=== PATIENT | female | born 1950 | race Caucasian/White ===

== ENCOUNTER → 2018-03-22 | Outpatient (CLI) | payer OTHER ==
[~2018-03-22] MED LIST: AGM875T PO; ATOR40TA; CARV6.25; CCLB10TRX; CHANTIX; CLCX200C; CLPD75T; CTLP20T; ESTRATEST; ESTRATEST PO; EZET1TAB27 PO; FLUC200T45 PO; HCT25T; HYDR-3583 PO; MECL-124 PO; NF-ESOM40C; NTR.4SL; PHENTERAMINE; PROMETRIUM; SPRN25T; TRIAMTERENE/HCTZ; ULTRACET; UREA CREAM; VANIQA 13.9%
--- NOTE | 2018-03-22 08:25 | Diagnostic Imaging Report ---
INDICATION: Abdominal pain TECHNIQUE: Multiple real-time conroy scale sonographic images of the abdomen. CORRELATION STUDY: None FINDINGS: LIVER: Normal echotexture within the visualized portions of the liver. Liver length 18 cm. GALLBLADDER: Approximately 1 cm mobile gallstone is present. No abnormal gallbladder wall thickening or pericholecystic fluid. COMMON BILE DUCT: Nondilated at 2 mm. PANCREAS: Partially obscured. Visualized portions appearing unremarkable. SPLEEN: Unremarkable. ABDOMINAL AORTA: Unremarkable. INFERIOR VENA CAVA: Limited in visualization. RIGHT KIDNEY: 11.2 cm. Unremarkable. LEFT KIDNEY: 11.1 cm. Unremarkable. OTHER: None. IMPRESSION: 1. Mobile 1 cm gallstone. Otherwise unremarkable abdominal ultrasound evaluation. Dictated by: Dictated on workstation # [id number]
== END ==
LOC: RAD 06:42
PROVIDERS: ATTEND Nurse Practitioner Family
DX: K80.20 Calculus of gallbladder without cholecystitis without obstruction (principal); R16.0 Hepatomegaly, not elsewhere classified
CPT/HCPCS: 76700

== ENCOUNTER 2018-10-21 19:54 | Outpatient (CLI) | payer MEDICARE, OTHER | END 2018-10-22 06:25 | disposition home or self-care (01) | LOC: SLEEP 19:54 | PROVIDERS: ATTEND Nurse Practitioner Family | DX: G47.33 Obstructive sleep apnea (adult) (pediatric) (principal); G47.31 Primary central sleep apnea | CPT/HCPCS: 95811 ==

== ENCOUNTER → 2019-05-25 | Outpatient (CLI) | payer OTHER ==
--- NOTE | 2019-05-25 11:56 | Diagnostic Imaging Report ---
PROCEDURE: CT pelvis without contrast. TECHNIQUE: Multiple contiguous axial images were obtained through the pelvis without the use of intravenous contrast. Sagittal and coronal reformations were performed. Auto Exposure Controls were utilized during the CT exam to meet ALARA standards for radiation dose reduction. INDICATION: Bilateral hip pain. Lumbosacral pain. COMPARISON: None. FINDINGS: No acute fracture is seen in the pelvis. Alignment appears normal. The femoral heads are well seated in the acetabula bilaterally. There are moderate degenerative changes in the pubic symphysis. Moderate degenerative changes are seen in the right hip, and mild in the left hip. There is marked facet arthropathy in the lower lumbar spine. No aggressive osseous lesions are seen. The soft tissues about the pelvis demonstrate no focal muscular atrophy or drainable fluid collections. No free fluid is seen. No masses or lymphadenopathy are seen. IMPRESSION: 1. No acute fracture is seen in the pelvis. 2. Degenerative changes in the hips, right greater than left, and the lower lumbar spine. Dictated by: Dictated on workstation # [id number]
--- NOTE | 2019-05-25 13:07 | Diagnostic Imaging Report ---
PROCEDURE: CT lumbar spine without contrast. TECHNIQUE: Multiple contiguous axial images were obtained through the lumbar spine without the use of intravenous contrast. Sagittal and coronal reformations were then performed. Auto Exposure Controls were utilized during the CT exam to meet ALARA standards for radiation dose reduction. INDICATION: Low back pain radiating down both legs. No known injury. COMPARISON: None. FINDINGS: The last well formed disc space we labeled L5-S1 for purposes of this examination. The vertebral body heights are preserved. There is minimal disc height loss at multiple levels in the lumbar spine. There are small endplate osteophytes seen at multiple levels. There is marked facet arthropathy at L4-5 and L5-S1. No acute fracture is seen. There is calcific atherosclerosis. Nonobstructing calculi are seen in the kidneys bilaterally. There is a stone seen in the gallbladder. There is mild spinal canal narrowing at L4-5, L3-4, and L2-3 with mild bilateral foraminal narrowing at those levels as well. No aggressive osseous lesions are seen. IMPRESSION: 1. Marked facet arthropathy in the lower lumbar spine with otherwise mild degenerative changes. No acute osseous abnormality is seen. 2. Nephrolithiasis and cholelithiasis. Dictated by: Dictated on workstation # [id number]
== END ==
LOC: RAD 10:59
PROVIDERS: ATTEND Nurse Practitioner Family
DX: M46.86 Other specified inflammatory spondylopathies, lumbar region (principal); M47.816 Spondylosis without myelopathy or radiculopathy, lumbar region; N20.0 Calculus of kidney; K80.20 Calculus of gallbladder without cholecystitis without obstruction; M16.0 Bilateral primary osteoarthritis of hip
CPT/HCPCS: 72131; 72192

== ENCOUNTER → 2019-06-10 | Outpatient (CLI) | payer OTHER | LOC: CARD 09:52 | PROVIDERS: ATTEND Nurse Practitioner Family | DX: I51.7 Cardiomegaly (principal); I34.0 Nonrheumatic mitral (valve) insufficiency; I35.8 Other nonrheumatic aortic valve disorders | CPT/HCPCS: 93306 ==

== ENCOUNTER → 2021-09-30 | Outpatient (CLI) | payer OTHER ==
--- NOTE | 2021-09-30 12:18 | Diagnostic Imaging Report ---
PROCEDURE: Pelvic comp/transvaginal sonogram. TECHNIQUE: Complete transabdominal and transvaginal pelvic ultrasound was performed. In addition, limited pelvic Doppler was performed. INDICATION: Pelvic pain. FINDINGS: Uterus measures 8.6 x 4.4 x 5.0 cm. There appears to be approximately 2.1 cm fibroid in the mid anterior uterus. There are cervical nabothian cysts present. Endometrium is slightly thickened at 7 mm. Right ovary measures 3.3 x 2.4 x 3.0 cm. Right ovary does contain a 2.3 x 2.0 cm cyst. There is blood flow to the right ovary. The left ovary is surgically absent. There is no free fluid. IMPRESSION: 1. Uterine fibroid. 2. 2.3 cm right ovarian cyst. In addition, endometrium is slightly thickened for patient's age. No other significant abnormality is seen. Dictated by: Dictated on workstation # [id number]
--- NOTE | 2021-09-30 12:30 | Diagnostic Imaging Report ---
INDICATION: Routine screening. COMPARISON: 08/30/2014 and 08/16/2013. TECHNIQUE: 2D and 3D bilateral screening mammography was performed with CAD. FINDINGS: Both breasts are heterogeneously dense, limiting the sensitivity of mammography. There is a circumscribed nodule in the central right breast slightly lateral to the nipple line on the CC view. Additional views are recommended. The left breast is unremarkable. No malignant-appearing microcalcifications are seen. The axillae are unremarkable. IMPRESSION: Right breast density. Additional views are recommended for further evaluation. If this persists, ultrasound will be necessary as well. ACR BI-RADS Category 0: Incomplete. (Needs additional imaging evaluation). Result letter will be mailed to the patient. Note: At least 10% of breast cancer is not imaged by mammography. Dictated by: Dictated on workstation # [id number]
--- NOTE | 2021-09-30 12:47 | Diagnostic Imaging Report ---
INDICATION: RENAL STONE,GALLSTONES TECHNIQUE: Multiple real-time conroy scale sonographic images of the abdomen. CORRELATION STUDY: 03/22/2018 FINDINGS: LIVER: Slight increased echotexture within the visualized portions of the liver. Question more focal area of fatty sparing near the marilu hepatis. There is normal, hepatopedal direction of flow within the main portal vein. Liver length at 14.8 cm. GALLBLADDER: Echogenic, shadowing gallstones are present. No abnormal gallbladder wall thickening. COMMON BILE DUCT: Nondilated at 0.5 cm. PANCREAS: Limited in visualization. The visualized portions appearing unremarkable. SPLEEN: Unremarkable at 8.3 x 3.2 x 3.6 cm. Probable approximately 2.5 cm accessory spleen also present. ABDOMINAL AORTA: Unremarkable. INFERIOR VENA CAVA: Limited in visualization. RIGHT KIDNEY: 11.1 x 5.8 x 5.0 cm. Unremarkable. LEFT KIDNEY: 10.1 x 4.8 x 4.0 cm. Unremarkable. OTHER: None. IMPRESSION: 1. Likely mild hepatic steatosis. 2. Cholelithiasis. No significant gallbladder wall thickening or bile duct dilatation. Dictated by: Dictated on workstation # [id number]
== END ==
LOC: RAD 09:45
PROVIDERS: ATTEND Nurse Practitioner Family
DX: Z12.31 Encounter for screening mammogram for malignant neoplasm of breast (principal); D25.9 Leiomyoma of uterus, unspecified; N83.201 Unspecified ovarian cyst, right side; K80.20 Calculus of gallbladder without cholecystitis without obstruction; N20.0 Calculus of kidney
CPT/HCPCS: 76700; 76830; 76856; 77063; 77067

== ENCOUNTER → 2021-10-04 | Outpatient (CLI) | payer OTHER ==
--- NOTE | 2021-10-04 15:52 | Diagnostic Imaging Report ---
INDICATION: Right breast density. Patient presents for additional views. Correlation is made with screening study from 09/30/2021. Unilateral right 2-D and 3-D diagnostic mammography was performed. This includes spot compression CC and ML views as well as conventional 90 degree lateral views. Additional views fail to demonstrate a discrete mass. There appears to be normal dispersion of fibroglandular elements. No suspicious microcalcifications are seen. IMPRESSION: Additional views fail to demonstrate a discrete mass. The patient may return to routine annual screening mammography. BI-RADS Category 1 ACR BI-RADS Category 1: Negative. Result letter will be mailed to the patient. Note: At least 10% of breast cancer is not imaged by mammography. Dictated by: Dictated on workstation # [id number]
== END ==
LOC: RAD 13:45
PROVIDERS: ATTEND Nurse Practitioner Family
DX: R92.2 Inconclusive mammogram (principal)
CPT/HCPCS: 77065; G0279

== ENCOUNTER → 2021-10-16 | Outpatient (CLI) | payer OTHER | LOC: CARD 14:30 | PROVIDERS: ATTEND Internal Medicine Cardiovascular Disease | DX: I08.0 Rheumatic disorders of both mitral and aortic valves (principal) | CPT/HCPCS: 93306 ==

== ENCOUNTER 2021-11-18 05:27 | Outpatient (RCR) | payer OTHER, MEDICARE ==
--- NOTE | 2021-11-13 11:17 | Diagnostic Imaging Report ---
Indication: Preop for total knee replacement 2 views of the chest shows normal heart size and vascularity. There is some flattening of diaphragms consistent with COPD. There is a well-circumscribed nodular density in the right midlung which is probably but not definitely a nipple shadow. Follow-up images with nipple markers would be helpful. No other mass or infiltrate is seen. There is no acute bony abnormality. IMPRESSION: Probable nipple shadow. COPD. There is slightly more basilar hyperexpansion compared to a prior chest x-ray from 08/05/2011. Dictated by: Dictated on workstation # [id number]
[2021-11-13 11:20] LABS: BASOPHILS # (AUTO) 0.1 10^3/uL (0.0-0.1); BASOPHILS % (AUTO) 1 % (0-10); EOSINOPHILS # (AUTO) 0.2 10^3/uL (0.0-0.3); EOSINOPHILS % (AUTO) 2 % (0-10); HEMATOCRIT 44 % (35-52); HEMOGLOBIN 14.2 g/dL (11.5-16.0); LYMPHOCYTES # (AUTO) 1.5 10^3/uL (1.0-4.0); LYMPHOCYTES % (AUTO) 21 % (12-44); MEAN CORPUSCULAR HEMOGLOBIN 30 pg (25-34); MEAN CORPUSCULAR HGB CONC 33 g/dL (32-36); MEAN CORPUSCULAR VOLUME 90 fL (80-99); MEAN PLATELET VOLUME 9.4 fL (9.0-12.2); MONOCYTES # (AUTO) 0.5 10^3/uL (0.0-1.0); MONOCYTES % (AUTO) 6 % (0-12); NEUTROPHILS % (AUTO) 69 % (42-75); PLATELET COUNT 358 10^3/uL (130-400); WHITE BLOOD COUNT 7.2 10^3/uL (4.3-11.0)
[2021-11-13 11:21] LABS: BILIRUBIN,URINE NEGATIVE (NEGATIVE); CLARITY,URINE CLEAR; COLOR,URINE YELLOW; GLUCOSE, URINE (UA) NEGATIVE (NEGATIVE); KETONES,URINE NEGATIVE (NEGATIVE); LEUKOCYTE ESTERASE ,URINE NEGATIVE (NEGATIVE); NITRITE,URINE NEGATIVE (NEGATIVE); PH,URINE 6.5 (5-9); PROTEIN,URINE NEGATIVE (NEGATIVE)
[2021-11-13 11:30] LABS: BACTERIA,URINE NEGATIVE /HPF; SQUAMOUS EPITHELIAL CELL,UR 0-2 /HPF
[2021-11-13 11:35] LABS: ERYTHROCYTE SEDIMENTATION RATE 17 MM/HR (0-30)
[2021-11-13 11:45] LABS: ALBUMIN 4.5 GM/DL (3.2-4.5); BILIRUBIN,TOTAL 0.3 MG/DL (0.1-1.0); CALCIUM 9.8 MG/DL (8.5-10.1); CREATININE SERUM 1.1 MG/DL (0.60-1.30); POTASSIUM 3.9 MMOL/L (3.6-5.0); TOTAL PROTEIN 8.2 GM/DL (6.4-8.2)
[2021-11-13 12:14] VITALS: BP 135/67
[~2021-11-18] VITALS: Ht 164 cm; Wt 70.0 kg
[~2021-11-18 05:27] MED LIST changes: +ASPI-999 PO; +ESCI20TA39 PO; +ESTR0.5T3 PO; +EZET-57 PO; +HYDR25TA4 PO; +MULT-1021 PO; +PROG100C11 PO; +TPR25T PO
== END 2021-11-18 10:15 | disposition home or self-care (01) ==
LOC: PREOP 05:27
PROVIDERS: ATTEND Orthopaedic Surgery
DX: Z01.818 Encounter for other preprocedural examination (principal); M17.12 Unilateral primary osteoarthritis, left knee; J44.9 Chronic obstructive pulmonary disease, unspecified; Z11.2 Encounter for screening for other bacterial diseases; Z20.822 Contact with and (suspected) exposure to COVID-19
CPT/HCPCS: 36415; 71046; 80053; 81000; 85025; 85652; 86850; 86900; 86901; 87081; 87635

== ENCOUNTER 2021-11-20 06:00 | Inpatient (IN) | payer OTHER, MEDICARE ==
--- NOTE | 2021-11-13 19:22 | HISTORY AND PHYSICAL ---
DATE OF SERVICE: 11/20/2021 ADMISSION HISTORY AND PHYSICAL This will be for inpatient admission on 11/20/2021. Date of admission for left total knee arthroplasty will be 11/20/2021. Date of admission/date of service/date of surgery will be 11/20/2021. The patient will require regular inpatient admission for pain management, need for physical therapy as well as comorbidities. HISTORY OF PRESENT ILLNESS: The patient is a 71-year-old female with progressively worsening left knee pain. She has undergone treatment with injections, anti-inflammatories and rest without relief. Due to functional impairment and failure to improve with conservative measures, the patient elected to proceed with surgical intervention. Radiographs reveal severe medial and patellofemoral arthrosis. REVIEW OF SYSTEMS: No chest pain, no shortness of breath, no dysuria. PAST MEDICAL HISTORY: Stage 2 kidney disease, depression, endometriosis, right coronary artery stent, hypertension, gout, sleep apnea. PAST SURGICAL HISTORY: Laparoscopy, tubal ligation, total knee arthroplasty, tonsillectomy, ovarian cyst excision, coronary stent placement, right carpal tunnel, and appendectomy. FAMILY HISTORY: Ischemic heart disease, breast cancer, autoimmune disease. PRIMARY CARE PROVIDER: Dr. Olmstead. MEDICATIONS: Vytorin, hydrochlorothiazide, aspirin, estrogen, spironolactone, progesterone, escitalopram, ezetimibe. ALLERGIES: SULFA. SOCIAL HISTORY: The patient is a former smoker with a [id number] history. She drinks alcohol occasionally. PHYSICAL EXAMINATION: GENERAL: The patient is well-developed, well-nourished, in no acute distress. HEENT: Normocephalic, atraumatic. Pupils are equal, round and reactive to light. Oropharynx is clear. NECK: Supple with no lymphadenopathy. LUNGS: Clear to auscultation bilaterally. HEART: Regular rate and rhythm. ABDOMEN: Soft, nontender, nondistended. EXTREMITIES: The left knee demonstrates varus alignment. She has a slight effusion. There is no erythema or warmth. She ambulates with an antalgic gait. She is tender along her medial joint line. She has pain medially with Jill's. Range of motion 0/3/115. There is no varus valgus laxity. Negative anterior and posterior drawer. IMPRESSION: Left knee severe osteoarthritis, unresponsive to conservative measures. PLAN: Left total knee arthroplasty. The risks, benefits, options, ramifications and recovery have been discussed at length with the patient. She understands and wishes to proceed. Job ID: [id number] DocumentID: [id number] Dictated Date: 10/31/2021 14:55:15 Chief Pilot Date: 10/31/2021 15:29:00 Dictated By: BHARATH DOAN MD
[~2021-11-20] VITALS: Ht 162.6 cm; Wt 70.0 kg
[2021-11-20] VITALS (15 sets, daily range): BP systolic 104–165; BP diastolic 47–75
[2021-11-20] MEDS ORDERED: CEFUROXIME INJECTION 1,500 MG in NS (IVPB) 50 ML IV ONE (06:15)
[2021-11-20] MEDS ORDERED: CEFUROXIME 1.5 GM/15 ML (ZINACEF) VIAL ONE (06:20)
[2021-11-20] MEDS: LACTATED RINGERS 1,000 ML IV PRN ×2 (06:40→07:43)
[2021-11-20] MEDS ORDERED: ROPIVACAINE 5MG/ML 30ML VIAL ONE (06:53)
[2021-11-20] MEDS ORDERED: MIDAZOLAM 2 MG/2 ML (VERSED) VIAL ONE (06:53)
[2021-11-20] MEDS ORDERED: fentaNYL INJ 100 MCG/2 ML AMP ONE (06:58)
[2021-11-20] MEDS ORDERED: NALOXONE 0.4 MG/ML 1 ML (NARCAN) VIAL IV PRN (07:30)
[2021-11-20] MEDS ORDERED: diphenhydrAMINE 50 MG/ML INJ (BENADRYL) IVP PRN (07:30)
[2021-11-20] MEDS ORDERED: morphine PCA 100 MG/100 ML BAG IV PRN (07:30)
[2021-11-20] MEDS ORDERED: ONDANSETRON 4 MG/2 ML (SDV) Z0FRAN IVP PRN ×2 (07:30→09:30)
[2021-11-20 07:32] LABS: PROTHROMBIN TIME PATIENT 13.1 SEC (12.2-14.7)
--- NOTE | 2021-11-20 07:33 | Progress Note-Pre Operative ---
Pre-Operative Progress Note H&P Reviewed The H&P was reviewed, patient examined and no changes noted. Date Seen by Provider: Nov 20, 2021 Time Seen by Provider: 07:22 Date H&P Reviewed: Nov 20, 2021 Time H&P Reviewed: 07:11 Pre-Operative Diagnosis: left knee primary osteoarthritis BHARATH DOAN MD Nov 20, 2021 07:33
--- NOTE | 2021-11-20 07:34 | Progress Note-Post Operative ---
Post-Operative Progess Note Surgeon (s)/Hvac Technician Residential (s) Surgeon BHARATH DOAN MD Hvac Technician Residential: Farshad Boone Pre-Operative Diagnosis left knee primary osteoarthritis Post-Operative Diagnosis left knee primary osteoarthritis Procedure & Operative Findings Date of Procedure 11/20/21 Procedure Performed/Findings left total knee arthroplasty Anesthesia Type GETA Estimated Blood Loss Estimated blood loss (mL): minimal Specimens/Packing Specimens Removed none Packing: none BHARATH DOAN MD Nov 20, 2021 07:34
--- NOTE | 2021-11-20 07:36 | D/C HH Face to Face Order ---
D/C Face to Face Orders Reconcile Patient Problems Problems Reviewed?: Yes Instructions for Patient Via [facility], Patient Instructions/FollowUp: three weeks Physician to follow Patient: three weeks Discharge Diet for Home: Regular Diet Patient Data-Allergies,Ht & Wt Patient Allergies: Coded Allergies: Sulfa (Sulfonamide Antibiotics) (Verified Allergy, Unknown, 02/13/08) codeine (Verified Allergy, Unknown, 11/20/21) estrogens, conjugated (Verified Allergy, Unknown, 10/27/07) gatifloxacin (Verified Allergy, Unknown, 10/27/07) rubber, unspecified (Verified Allergy, Unknown, 11/20/21) tetracaine (Verified Allergy, Unknown, 10/27/07) Height (Feet): 5 Height (Inches): 4 Weight (Pounds): 154 Home Health Need/Face to Face Date of Face to Face: Nov 20, 2021 Clinical Findings: Muscle weakness, Pain with ambulation, Unsteady gait I have seen Pt [id number]: Yes Discharged To: Home Diagnosis/Conditions: left total knee arthroplasty Patient is Homebound due to: Muscle weakness, Pain w/ambulation Homebound Status Due to the above stated illness, injury or surgical procedure (medical condition or diagnosis) and associated clinical findings, the patient is homebound because of his/her inability to leave home except with aid of a supportive device and/or person AND leaving the home requires a considerable and taxing effort or is medically contraindicated. Pt req the following assistanc: Walker Home Health Nursing Orders Home Health Services Order: Physical Therapy-Evaluate & Treat DC left knee laura and apply steri strips 12/04/20 Therapy Orders Therapy Orders: Physical Therapy, PT to assess for OT Therapy Specific Orders: Eval assistive deivces, Teach enviro modifications/safety, Gait training, Increase strength/endurance, Provider maintenance therapy, Restore ROM Certify Stmt I certify that this patient is under my care and that I, a nurse practitioner or a physician; a dental assistant working with me, had a face to face encounter that - meets the physician face to face encounter requirements with this patient as dated. BHARATH DOAN MD Nov 20, 2021 07:36
[2021-11-20] MEDS ORDERED: INTRA-ARTICULAR IU ONE ×5 (07:45)
[2021-11-20] MEDS ORDERED: LIDOCAINE PF 2% 5 ML (XYLOCAINE) VIAL ONE (08:07)
[2021-11-20] MEDS ORDERED: ONDANSETRON 4 MG/2 ML (SDV) Z0FRAN ONE (08:07)
[2021-11-20] MEDS ORDERED: proPOfol 200 MG/20 ML (DIPRIVAN) VIAL IV ONE (08:07)
[2021-11-20] MEDS ORDERED: SEVOFLURANE (ULTANE) 15 ML INHAL SOLN ONE (09:10)
[2021-11-20] MEDS ORDERED: MEPERIDINE (DEMEROL) INJ 50 MG/ML ONE (09:26)
[2021-11-20] MEDS ORDERED: fentaNYL INJ 100 MCG/2 ML AMP IVP ONE (09:30)
[2021-11-20] MEDS ORDERED: morphine INJ 10 MG/ML 1ML (SYR OR VIAL) IVP ONE (09:30)
[2021-11-20] MEDS ORDERED: MEPERIDINE (DEMEROL) INJ 50 MG/ML IVP ONE (09:30)
[2021-11-20] MEDS ORDERED: HYDROmorphone 2 MG/ML VIAL (DILAUDID) IV ONE (09:30)
[2021-11-20] MEDS ORDERED: HYDROmorphone 2 MG/ML VIAL (DILAUDID) ONE (09:34)
--- NOTE | 2021-11-20 09:54 | Diagnostic Imaging Report ---
INDICATION: Left knee replacement. TIME OF EXAM: 9:20 AM Two views of the left knee demonstrate postop changes of total knee arthroplasty. Prosthetic elements are in good position. No fracture or loosening is seen. There are overlying skin laura. IMPRESSION: Satisfactory postop left knee. Dictated by: Dictated on workstation # [id number]
--- NOTE | 2021-11-20 11:37 | Progress Note ---
Standard Progress Note Progress Notes/Assess & Plan Date Seen by a Provider: Nov 20, 2021 Time Seen by a Provider: 09:30 Progress/Assessment & Plan post op check no complaints radiographs--HW well positioned without fracture LLE--2 plus DP pulse with brisk cap refill intact DF and PF of toes and ankle with intact sensation to light touch throughout s/p LTKA mobilize as able BHARATH DOAN MD Nov 20, 2021 11:37
[2021-11-20] MEDS: NS IV 1000 ML 1,000 ML IV SCH (12:16)
[2021-11-20] MEDS: SENNA W/DOCUSATE (SENOKOT S) TABLET PO SCH ×2 (12:37→20:37)
--- NOTE | 2021-11-20 13:44 | Physical Therapy Evaluation ---
PT Evaluation-General Medical Diagnosis Admission Date Nov 20, 2021 at 06:00 Medical Diagnosis: Left TKA Onset Date: Nov 20, 2021 Therapy Diagnosis Therapy Diagnosis: Gait deficit, strength deficit Height/Weight Height (Feet): 5 Height (Inches): 4 Weight (Pounds): 154 Precautions Precautions/Isolations: Fall Prevention, Standard Precautions Weight Bear Status Left Lower Extremity: Left Weight Bearing/Tolerated Referral Physician: Dr. Isaac Reason for Referral: Evaluation/Treatment Social History Home: Multilevel Current Living Status: Spouse Entry Into Home: Stairs With Railing PT Steps Into Home: 4 PT Steps Inside Home: 10 Prior Prior Level of Function SCALE: Activities may be completed with or without assistive devices. 5-Knnfwkcpys-wpmonan completes the activity by him/herself with no assistance from a helper. 5-Set-up or Clean-up Assistance-helper sets up or cleans up; patient completes activity. [place] assists only prior to or following the activity. 4-Supervision or Touching Assistance-helper provides verbal cues and/or touching/steadying and/or contact guard assistance as patient completes activity. Assistance may be provided throughout the activity or intermittently. 3-Partial/Moderate Assistance-helper does LESS THAN HALF the effort. [place] lifts, holds or supports trunk or limbs, but provides less than half the effort. 2-Substantial/Maximal Assistance-helper does MORE THAN HALF the effort. [place] lifts or holds trunk or limbs and provides more than half the effort. 9-[place]ipi[place]-gnqlhi does ALL the effort. Patient does none of the effort to complete the activity. Or, the assistance of 2 or more helpers is required for the patient to complete the activity. If activity was not attempted, code reason: 7-Patient Refused. 9-Not Applicable-not attempted and the patient did not perform the activity before the current illness, exacerbation or injury. 10-Not Attempted due to Environmental Limitations-(lack of equipment, weather restraints, etc.). 88-Not Attempted due to Medical Conditions or Safety Concerns. Bed Mobility: 6 Transfers (B,C,W/C): 6 Gait: 6 Stairs: 6 Indoor Mobility (Ambulation): Independent Stairs: Independent Prior Devices Use: None PT Evaluation-Current Subjective Patient reports 0/10 pain in the left knee currently, agreeable to treatment. Objective Patient Orientation: Person, Place, Time, Situation Attachments: Oxygen, Cash Catheter, IV ROM/Strength ROM Lower Extremities Left knee lacks 20 degrees TKE in Supine, flexion to 95 degrees in sitting Right LE appears WFLs all planes Strength Lower Extremities Right LE 4/5 throughout Left Knee N/A due to surgery; all other planes 3+/5 Sensory Vision: Functional Hearing: Functional Sensation Right Lower Extremit: Intact Sensation Left Lower Extremity: Impaired Sensation Lower Extremities Patient unable to identify light touch at L3-S1, reports no issues prior to surgery. Transfers Roll Left to Right (QC): 4 Sit to Lying (QC): 4 Lying to Sitting/Side of Bed(Q: 4 Sit to Stand (QC): 4 Chair/Unj-ed-Afxie Xfer(QC): 4 Gait Does the Patient Walk?: Yes Mode of Locomotion: Walk Anticipated Mode of Locomotion: Walk Walk 10 feet (QC): 4 Distance: 40 feet Gait Assistive Device: FWW Balance Sitting Static: Good Sitting Dynamic: Good Standing Static: Fair Standing Dynamic: Fair Assessment/Needs Patient tolerated treatment fair. Demonstrates good overall left knee ROM, however lacks 20 degrees into extension. Patient performs all observed bed mobility and transfer with SBA/CGA. Patient ambulates 40 feet with FWW, with CGA and verbal cues for safety, progression, proper gait pattern. Patient in chair post treatment with all needs met, nursing notified, call light in hand and daughter in the room. Rehab Potential: Good PT Identification Clerk Goals Identification Clerk Goals PT Senior Care Goals Time Frame: Dec 06, 2021 Roll Left & Right (QC): 6 Sit to Lying (QC): 6 Lying-Sitting on Side/Bed(QC): 6 Sit to Stand (QC): 6 Chair/Yoe-uw-Xuofl Xfer(QC): 6 Toilet Transfer (QC): 6 Does the Patient Walk: Yes Walk 10 feet (QC): 6 Walk 50ft with 2 Turns (QC): 6 Walk 150 ft (QC): 6 1 Step (curb) (QC): 4 4 Steps (QC): 4 12 Steps (QC): 4 PT Plan Problem List Problem List: Activity Tolerance, Functional Strength, Safety, Balance, Gait, Transfer, Bed Mobility, ROM Treatment/Plan Treatment Plan: Continue Plan of Care Treatment Plan: Bed Mobility, Education, Functional Activity Windy, Functional Strength, Group Therapy, Gait, Safety, Therapeutic Exercise, Transfers Treatment Duration: Dec 20, 2021 Frequency: 11 times per week Estimated Hrs Per Day: .25 hour per day Safety Risks/Education Patient Education: Gait Training, Transfer Techniques Teaching Recipient: Patient Teaching Methods: Demonstration, Discussion Response to Teaching: Verbalize Understanding, Return Demonstration Time/GCodes Time In: 1205 Time Out: 1235 Total Billed Treatment Time: 30 Total Billed Treatment Visit, Vandana Mason, CPM, CPM pads ARIELLA DAVIS PT Nov 20, 2021 13:44
[2021-11-20] MEDS: CEFUROXIME INJECTION 750 MG in NS (IVPB) 50 ML IV SCH ×2 (15:23→22:48)
--- NOTE | 2021-11-20 15:43 | OPERATIVE REPORT ---
DATE OF SERVICE: 11/20/2021 PREOPERATIVE DIAGNOSIS: Left knee primary osteoarthritis. POSTOPERATIVE DIAGNOSIS: Left knee primary osteoarthritis. PROCEDURE: Left total knee arthroplasty. SURGEON: Ankit Doan MD COGNOS ADMINISTRATOR: Farshad Randolph, who assisted throughout the procedure and closed the incision. ANESTHESIA: General endotracheal by Yue Langston CRNA. TOURNIQUET TIME: Approximately 60 minutes at 300 mmHg. ESTIMATED BLOOD LOSS: Minimal. DRAINS: None. COMPLICATIONS: None. POSTOPERATIVE PLAN: Routine protocol. The patient was transferred to the recovery room awake and in stable condition. MATERIALS: Microport cemented size 4 femur, cemented size 4 tibia with 10 mm insert and cemented size 29 patellar button. STATEMENT OF MEDICAL NECESSITY: The patient is a 71-year-old female with long-standing progressive left knee pain. Radiographs revealed severe medial and patellofemoral arthrosis. She has undergone treatment with injections, anti-inflammatories and rest without relief. Due to functional impairment and failure to improve with conservative measures, the patient elected to proceed with surgical intervention. DESCRIPTION OF PROCEDURE: After risks and benefits of procedure were discussed and questions were answered, an informed consent was signed and placed on chart, the operative site was confirmed in the preoperative holding area initialed by the surgeon. The patient was then transferred to the operating room and after adequate levels of general endotracheal anesthetic were obtained, a timeout was called, confirming the operative site. The left lower extremity was prepped and draped in the usual sterile fashion. With the leg elevated and the knee flexed, the tourniquet was inflated to 300 mmHg. Standard anterior approach was utilized. Hemostasis was obtained with cautery. A medial parapatellar arthrotomy was performed leaving 1 cm cuff on the patella for later reattachment. A portion of the fat pad was resected. The ACL was resected. Intramedullary guide was passed into the femoral canal. The distal cutting block was placed. Distal cut was made and the femur sized to a size 4. The 4 cutting block was placed parallel to the epicondylar axis and cuts were made from posterior to anterior. Subperiosteal release was then carefully performed and posterior distal femur being careful to stay on the bony surface. The intramedullary guide was then passed into the tibia. The cutting block was placed. The drop nasir transected the intermalleolar axis and the cut was made, 4 baseplate provided excellent coverage and this was prepared with the drill and keel punch after ensuring that the drop nasir transected the intermalleolar axis. The 4 femoral trial was placed, trochlear cut was made. A 10 mm insert was placed. The patella was then prepared by using the freehand technique and resecting 10 mm off the undersurface. Peg guide was placed and the peg holes were drilled. The 29 trial was placed. The knee was taken through range of motion. Full extension was easily obtained, 130 degrees of flexion with gravity was easily obtained. There was no anterior/posterior or medial/lateral laxity in flexion or extension. The patella tracked well. The trials were removed. The periarticular block was placed in the posterior capsule, medial and lateral retinaculum, medial and lateral retinaculum, extensor mechanism, and subcutaneous tissues. The bone ends were irrigated and dried as was the joint after irrigating and drying the bone ends. The tibial baseplate was cemented into position. Excessive cement was removed. The superior surface was irrigated and dried. The polyethylene insert was placed. Distal femur was irrigated and dried and the femoral prosthesis was cemented into position. Excessive cement was removed. The knee was brought out in full extension until cement had cured. The undersurface of patella was irrigated and dried. The patellar button was cemented into position. Excessive cement was removed. The NitrX components were used on both the tibia and femur. Once the cement had cured, the knee was taken through range of motion. Full extension was easily obtained under 20 degrees of flexion with gravity was easily obtained. The patella tracked well. There was no anterior/posterior or medial/lateral laxity in flexion or extension. The joint was further irrigated with pulse lavage. The arthrotomy was closed with #2 Tevdek in [id number]-tf-[id number] interrupted fashion. Knee was flexed. The repair was stable. Subcutaneous tissues were irrigated and dried using a total of 6 liters throughout the procedure. A 0 Vicryl was used for deep subcutaneous tissue, 2-0 Vicryl for the superficial subcutaneous tissue, laura used on the skin. A soft dressing was applied. The tourniquet was deflated and the patient was transferred to the recovery room awake and in stable condition. Job ID: [id number] DocumentID: [id number] Dictated Date: 11/20/2021 09:15:43 Feeder Catcher Date: 11/20/2021 15:42:20 Dictated By: ANKIT DOAN MD
[2021-11-20] MEDS ORDERED: CALCIUM CARBONATE 500 MG (TUMS) TAB.CHEW PO PRN (20:15)
[2021-11-20] MEDS ORDERED: CALCIUM CARBONATE 500 MG (TUMS) TAB.CHEW ONE (20:21)
[2021-11-21] VITALS (7 sets, daily range): BP systolic 106–139; BP diastolic 51–67
[2021-11-21] MEDS: NS IV 1000 ML 1,000 ML IV SCH ×3 (01:26→14:06)
[2021-11-21 05:51] LABS: HEMOGLOBIN 10.4 g/dL (11.5-16.0)
[2021-11-21] MEDS: oxyCODONE/APAP 5/325MG (PERCOCET 5) TABLET PO PRN ×4 (05:56→12:53)
[2021-11-21] MEDS: MULTIVIT W/MINERALS TAB (THERAGRAN M) PO SCH (06:46)
--- NOTE | 2021-11-21 08:05 | Progress Note ---
Standard Progress Note Progress Notes/Assess & Plan Date Seen by a Provider: Nov 21, 2021 Time Seen by a Provider: 08:03 Progress/Assessment & Plan post op check no complaints radiographs--HW well positioned without fracture LLE--2 plus DP pulse with brisk cap refill intact DF and PF of toes and ankle with intact sensation to light touch throughout s/p LTKA mobilize as able Final Diagnosis doing well, complains of pain but controlled with morphine Vital Signs Date Time Temp Pulse Resp B/P (MAP) Pulse Ox O2 Delivery O2 Flow Rate FiO2 11/21/21 07:31 14 11/21/21 04:00 37.2 72 14 106/58 (74) 93 Nasal Cannula 2.00 11/21/21 00:50 37.3 68 16 113/58 (76) 94 NIV CPAP 11/20/21 20:35 97 Room Air 11/20/21 19:50 37.2 60 16 104/47 (66) 97 Room Air 11/20/21 18:25 Nasal Cannula 2.00 11/20/21 15:30 36.7 58 18 122/63 (82) 96 Nasal Cannula 2.00 11/20/21 12:42 37.2 65 16 111/48 (69) 93 Room Air 11/20/21 11:35 36.8 69 16 115/58 (77) 95 NIV CPAP 11/20/21 11:05 36.5 70 16 107/58 (74) 95 NIV CPAP 11/20/21 10:50 37.0 72 12 115/56 (75) 95 NIV CPAP 11/20/21 10:32 36.2 73 16 118/61 (80) 93 NIV CPAP 11/20/21 10:13 36.0 73 18 129/65 (86) Nasal Cannula 2.00 11/20/21 10:00 36.7 16 142/59 (86) 96 OxyMask 1 11/20/21 09:59 OxyMask 1 11/20/21 09:50 22 155/61 (92) 97 OxyMask 2 11/20/21 09:50 OxyMask 1 11/20/21 09:40 OxyMask 2 11/20/21 09:40 16 146/73 (97) 99 OxyMask 2 11/20/21 09:30 16 159/75 (103) 100 OxyMask 4 11/20/21 09:25 OxyMask 4 11/20/21 09:20 18 165/72 (103) 100 OxyMask 10 11/20/21 09:11 OxyMask 10 11/20/21 09:11 36.1 20 119/56 (77) 97 OxyMask 10 I & O 11/21/21 07:00 Intake Total 2500 ml Balance 2500 ml Laboratory Tests Test 11/21/21 05:32 Range/Units Hemoglobin 10.4 L 11.5-16.0 g/dL Hematocrit 33 L 35-52 % LLE--dressing intact NVI distally s/p L TKA PT/OT 2 mg Morphine q 6 PRN BHARATH DOAN MD Nov 21, 2021 08:05
[2021-11-21] MEDS: ESTRADIOL 1 MG TAB (ESTRACE) PO SCH ×3 (08:16→08:21)
[2021-11-21] MEDS: SENNA W/DOCUSATE (SENOKOT S) TABLET PO SCH ×2 (08:16→19:49)
[2021-11-21] MEDS: toPIRamate 25 MG (TOPAMAX) TAB PO SCH (08:16)
[2021-11-21] MEDS: ASPIRIN E.C. 81 MG (ECOTRIN) TAB PO SCH (08:16)
[2021-11-21] MEDS: ENOXAPARIN 30 MG/0.3 ML (LOVENOX) SYR SC SCH ×2 (08:17→19:49)
--- NOTE | 2021-11-21 09:55 | Physical Therapy Daily Note ---
PT Daily Note-Current Subjective Patient c/o 10/10 left knee pain with UNARMED SECURITY OFFICER and pain pills issued. Pain Numeric Pain Scale: 10-Worst Possible Pain Location: Left Location Body Site: Knee Pain Description: Acute Mental Status Patient Orientation: Normal For Age Attachments: IV Transfers SCALE: Activities may be completed with or without assistive devices. 3-Dxdikvihub-vvhueoi completes the activity by him/herself with no assistance from a helper. 5-Set-up or Clean-up Assistance-helper sets up or cleans up; patient completes activity. [place] assists only prior to or following the activity. 4-Supervision or Touching Assistance-helper provides verbal cues and/or touching/steadying and/or contact guard assistance as patient completes activity. Assistance may be provided throughout the activity or intermittently. 3-Partial/Moderate Assistance-helper does LESS THAN HALF the effort. [place] lifts, holds or supports trunk or limbs, but provides less than half the effort. 2-Substantial/Maximal Assistance-helper does MORE THAN HALF the effort. [place] lifts or holds trunk or limbs and provides more than half the effort. 2-Acvllcbzd-buvesg does ALL the effort. Patient does none of the effort to complete the activity. Or, the assistance of 2 or more helpers is required for the patient to complete the activity. If activity was not attempted, code reason: 7-Patient Refused. 9-Not Applicable-not attempted and the patient did not perform the activity before the current illness, exacerbation or injury. 10-Not Attempted due to Environmental Limitations-(lack of equipment, weather restraints, etc.). 88-Not Attempted due to Medical Conditions or Safety Concerns. Lying to Sitting/Side of Bed(Q: 4 Sit to Stand (QC): 4 Chair/Dhk-af-Twbmh Xfer(QC): 4 Weight Bearing Left Lower Extremity: Left Weight Bearing/Tolerated Gait Training Distance: 175' Walk 10 feet (QC): 4 Walk 50 ft with 2 Turns(QC): 4 Walk 150 ft (QC): 4 Gait Assistive Device: FWW slow, antalgic, step to gait sequence Exercises Supine Ex: Ankle pumps, Quad Set, Glut sets, Heel Slides, Straight leg raise Supine Reps: 15 Seated Therapy Exercises: Long arc quads Seated Reps: 15 Assessment Patient continues to lack ~15 degrees TKE with all activity. Patient is encouraged to perform exercises PRN seated and supine. Patient voices understanding. Spouse present. PT [facility] Goals Head Nurse Goals PT Head Nurse Goals Time Frame: Dec 06, 2021 Roll Left & Right (QC): 6 Sit to Lying (QC): 6 Lying-Sitting on Side/Bed(QC): 6 Sit to Stand (QC): 6 Chair/Fqo-wf-Kyiue Xfer(QC): 6 Toilet Transfer (QC): 6 Does the Patient Walk: Yes Walk 10 feet (QC): 6 Walk 50ft with 2 Turns (QC): 6 Walk 150 ft (QC): 6 1 Step (curb) (QC): 4 4 Steps (QC): 4 12 Steps (QC): 4 PT Plan Treatment/Plan Treatment Plan: Continue Plan of Care Treatment Plan: Bed Mobility, Education, Functional Activity Windy, Functional Strength, Group Therapy, Gait, Safety, Therapeutic Exercise, Transfers Treatment Duration: Dec 20, 2021 Frequency: 11 times per week Estimated Hrs Per Day: .25 hour per day Time/GCodes Time In: 740 Time Out: 810 Total Billed Treatment Time: 30 Total Billed Treatment 1 visit EX 16 min GT 14 min SWATI DUDLEY PT Nov 21, 2021 09:55
--- NOTE | 2021-11-21 10:43 | Occupational Therapy Eval ---
OT Evaluation-General/PLF Medical Diagnosis Admission Date Nov 20, 2021 at 06:00 Medical Diagnosis: Left TKA Onset Date: Nov 20, 2021 Therapy Diagnosis Therapy Diagnosis: decreased ADL status Height/Weight Height (Feet): 5 Height (Inches): 4 Weight (Pounds): 154 Precautions Precautions/Isolations: Fall Prevention, Standard Precautions Referral Physician: Dr. Isaac Referral Reason: Evaluation/Treatment Medical History Additional Medical History Stage 2 kidney disease, depression, R coronary artery stent, HTN, gout, sleep apnea, TKA, R carpal tunnel Current History s/p L TKA 11/20/21 Social History Home: [facility] Current Living Status: Spouse Entry Into Home: Stairs With Railing Steps Into Home: 4 Steps Inside Home: 10 ADL-Prior Level of Function SCALE: Activities may be completed with or without assistive devices. 8-Cwnpdxhxpr-wcdztcr completes the activity by him/herself with no assistance from a helper. 5-Set-up or Clean-up Assistance-helper sets up or cleans up; patient completes activity. [place] assists only prior to or following the activity. 4-Supervision or Touching Assistance-helper provides verbal cues and/or touching/steadying and/or contact guard assistance as patient completes activity. Assistance may be provided throughout the activity or intermittently. 3-Partial/Moderate Assistance-helper does LESS THAN HALF the effort. [place] lifts, holds or supports trunk or limbs, but provides less than half the effort. 2-Substantial/Maximal Assistance-helper does MORE THAN HALF the effort. [place] lifts or holds trunk or limbs and provides more than half the effort. 8-Xmvjlkoni-kcecxi does ALL the effort. Patient does none of the effort to complete the activity. Or, the assistance of 2 or more helpers is required for the patient to complete the activity. If activity was not attempted, code reason: 7-Patient Refused. 9-Not Applicable-not attempted and the patient did not perform the activity before the current illness, exacerbation or injury. 10-Not Attempted due to Environmental Limitations-(lack of equipment, weather restraints, etc.). 88-Not Attempted due to Medical Conditions or Safety Concerns. ADL PLOF Comments Pt reports IND with ADLs and functional mobility at PLOF, no AE/AD. Self Care: Independent Functional Cognition: Independent DME/Equipment: Bath Chair, Shower OT Current Status Subjective Pt up with nursing staff going to bathroom, agreeable to OT tx. Pt did not complain of pain during session. Mental Status/Objective Patient Orientation: Person, Place, Situation Attachments: IV, Oxygen, Polar Pack Current Upper Extremity ROM WFL during ADL session Upper Extremity Coordination WFL Upper Extremity Sensation WFL ADL-Treatment Eating (QC): 6 (per clincial judgment.) Oral Hygiene (QC): 4 (SBA standing at sink.) On/Off Footwear (QC): 3 (Pt able to doff RLE gripper sock, assist LLE) Toileting Hygiene (QC): 4 (SBA during stand for clothing managment) Other Treatments Pt heading to bathroom with nursing staff using FWW, SBA. At one point, pt said "wow", when asked if she was okay, she indicted she had closed her eyes for a second. OT and pt discussed safety aspects of keeping her eyes open with ambulation, she verbalized understanding. Pt transferred to toilet, completed toileting, then stood at sink to wash her hands and complete oral care, SBA. Pt returned to bed, SBA using FWW, transferring supine with SBA. Pt doffed gripper socks. Post tx, pt in bed, call light in reach and all needs met. Education OT Patient Education: Correct positioning, Energy conservation, Modified ADL t echniques, Progress toward Goal/Update tx plan, Purpose of tx/functional activities, Rehab process Teaching Recipient: Patient Teaching Methods: Discussion Response to Teaching: Verbalize Understanding OT [facility] Goals Jewelry Sorter Goals Time Frame: Nov 29, 2021 Eating (QC): 6 Oral Hygiene (QC): 6 Toileting Hygiene (QC): 6 Shower/Bathe Self (QC): 4 Upper Body Dressing (QC): 6 Lower Body Dressing (QC): 4 On/Off Footwear (QC): 4 Additional Goals: 1-Demonstrate ADL Tasks, 2-Verbalize Understanding, 3- ImproveStrength/Windy 1=Demonstrate adherence to instructed precautions during ADL tasks. 2=Patient will verbalize/demonstrate understanding of assistive devices/modifications for ADL. 3=Patient will improve strength/tolerance for activity to enable patient to perform ADL's. OT Education/Plan Problem List/Assessment Assessment: Decreased Activ Tolerance, Decreased UE Strength, Impaired Funct Balance, Impaired I ADL's, Impaired Self-Care Skills, Restricted Funct UE ROM Discharge Recommendations Plan/Recommendations: Continue POC Treatment Plan/Plan of Care Patient would benefit from OT for education, treatment and training to promote independence in ADL's, mobility, safety and/or upper extremity function for ADL's. Plan of Care: ADL Retraining, Functional Mobility, UE Funct Exercise/Act Treatment Duration: Nov 29, 2021 Frequency: 3 times per week (3-5 times per week) Estimated Hrs Per Day: .25 hour per day Rehab Potential: Good Time/GCodes Start Time: 10:13 Stop Time: 10:31 Total Time Billed (hr/min): 18 Billed Treatment Time 1, ANTHONY CALL OT Nov 21, 2021 10:43
--- NOTE | 2021-11-21 11:34 | Anesthesia-General Post-Op ---
General Patient Condition Mental Status/LOC: Same as Preop Cardiovascular: Satisfactory Nausea/Vomiting: Absent Respiratory: Satisfactory Pain: Controlled Complications: Absent Post Op Complications Complications None Follow Up Care/Instructions Patient Instructions None needed. Anesthesia/Patient Condition Patient Condition Patient is doing well, no complaints, stable vital signs, no apparent adverse anesthesia problems. No complications reported per nursing. MARCELO QUINTANA CRNA Nov 21, 2021 11:34
--- NOTE | 2021-11-21 14:47 | Physical Therapy Daily Note ---
PT Daily Note-Current Subjective Patient very sedated/groggy with pain medication. Per family and RN patient and family have been pushing BLOW UP OPERATOR every 10 min and taking pain pill as ordered. Patient and family state that if she has pain medication then she shouldn't have pain. PT educated patient and family on the use of pain medication to assist wi th pain control, however, due to major surgery on a joint, she will have pain. Family voices understanding and states they will not push the BLOW UP OPERATOR for her. PT reported to RN and nursing clerk supervisor on this discussion. Pain Numeric Pain Scale: 10-Worst Possible Pain Location: Left Location Body Site: Knee Pain Description: Acute Mental Status Patient Orientation: Listless Attachments: Polar Pack, IV Transfers SCALE: Activities may be completed with or without assistive devices. 3-Npfjxigejd-regqmrs completes the activity by him/herself with no assistance from a helper. 5-Set-up or Clean-up Assistance-helper sets up or cleans up; patient completes activity. [place] assists only prior to or following the activity. 4-Supervision or Touching Assistance-helper provides verbal cues and/or touching/steadying and/or contact guard assistance as patient completes activity. Assistance may be provided throughout the activity or intermittently. 3-Partial/Moderate Assistance-helper does LESS THAN HALF the effort. [place] lifts, holds or supports trunk or limbs, but provides less than half the effort. 2-Substantial/Maximal Assistance-helper does MORE THAN HALF the effort. [place] lifts or holds trunk or limbs and provides more than half the effort. 2-Mudmtpsis-volxue does ALL the effort. Patient does none of the effort to complete the activity. Or, the assistance of 2 or more helpers is required for the patient to complete the activity. If activity was not attempted, code reason: 7-Patient Refused. 9-Not Applicable-not attempted and the patient did not perform the activity before the current illness, exacerbation or injury. 10-Not Attempted due to Environmental Limitations-(lack of equipment, weather restraints, etc.). 88-Not Attempted due to Medical Conditions or Safety Concerns. Sit to Lying (QC): 4 Lying to Sitting/Side of Bed(Q: 4 Sit to Stand (QC): 4 Chair/Ydy-re-Daduw Xfer(QC): 4 CGA for safety with gait belt in place Weight Bearing Left Lower Extremity: Left Weight Bearing/Tolerated Gait Training Distance: 200' Walk 10 feet (QC): 4 Walk 50 ft with 2 Turns(QC): 4 Walk 150 ft (QC): 4 Gait Assistive Device: FWW slow, slightly unsteady with PT CGA for safety Exercises Supine Ex: Ankle pumps, Quad Set, Heel Slides, Straight leg raise Supine Reps: 15 (AAROM) Seated Therapy Exercises: Long arc quads Seated Reps: 15 (AAROM) Assessment Patient in tears due to muscle spasm left quad. Patient and family appear very anxious with this. PT able to calm patient and family. Patient returned to bed sidelying left with pillow placement between LE's. Patient voiced relief. PT Rider Ticket Worker Goals Rider Ticket Worker Goals PT Nursing Home Goals Time Frame: Dec 06, 2021 Roll Left & Right (QC): 6 Sit to Lying (QC): 6 Lying-Sitting on Side/Bed(QC): 6 Sit to Stand (QC): 6 Chair/Rtk-te-Dlemo Xfer(QC): 6 Toilet Transfer (QC): 6 Does the Patient Walk: Yes Walk 10 feet (QC): 6 Walk 50ft with 2 Turns (QC): 6 Walk 150 ft (QC): 6 1 Step (curb) (QC): 4 4 Steps (QC): 4 12 Steps (QC): 4 PT Plan Treatment/Plan Treatment Plan: Continue Plan of Care Treatment Plan: Bed Mobility, Education, Functional Activity Windy, Functional Strength, Group Therapy, Gait, Safety, Therapeutic Exercise, Transfers Treatment Duration: Dec 20, 2021 Frequency: 11 times per week Estimated Hrs Per Day: .25 hour per day Time/GCodes Time In: 1255 Time Out: 1323 Total Billed Treatment Time: 28 Total Billed Treatment 1 visit EX 15 min GT 13 min SWATI DUDLEY PT Nov 21, 2021 14:46
[2021-11-21] MEDS ORDERED: PATIENT MAY USE OWN MED,SINGLE MED PO SCH (15:00)
[2021-11-21] MEDS ORDERED: PATIENT'S OWN MED (RX USE ONLY) PO SCH (15:18)
--- NOTE | 2021-11-21 16:51 | Consultation - Hospitalist ---
HPI History of Present Illness: HPI/Chief Complaint Fabiana George is a 71 year old female with PMH HTN, HLD, osteoarthritis, who was admitted after a scheduled left total knee arthroplasty. She underwent the procedure 11/20. She has been working with physical therapy and was able to walk in the [place] today. She had quite a bit of pain this morning. She denies fevers. She is not short of breath. She denies chest pain. She has been eating and drinking but her appetitie is not as good as usual. She is hoping to go home tomorrow. She remains on patient-controlled analgesics. Source: patient, family Exam Limitations: no limitations Date Seen 11/21/21 Attending Physician Ankit Isaac MD PCP Sancho Olmstead DO Referring Physician Date of Admission Nov 20, 2021 at 06:00 Home Medications & Allergies Home Medications Reviewed patient Home Medication Reconciliation performed by pharmacy medication reconciliations solar installer technician and/or nursing. Patients Allergies have been reviewed. Allergies Allergies Coded Allergies Sulfa (Sulfonamide Antibiotics) (Verified Allergy, Unknown, 02/13/08) estrogens, conjugated (Verified Allergy, Unknown, 10/27/07) gatifloxacin (Verified Allergy, Unknown, 10/27/07) rubber, unspecified (Verified Allergy, Unknown, 11/20/21) tetracaine (Verified Allergy, Unknown, 10/27/07) codeine (Verified Adverse Reaction, Mild, Nausea, can take Morphine, 11/20/21) Past Adaeunz-Bxyfdl-Rvpuak Hx Patient Social History Tobacco Use?: No Smoking Status: Former Smoker Smokeless Tobacco Frequency: Never a User Use of E-Cig and/or Vaping Scott: Never a User Substance use?: No Alcohol Use?: Yes Alcohol Frequency: Once in a while Immunizations Up To Date First/Initial COVID19 Vaccinat: NO Second COVID19 Vaccination Kike: NO Seasonal Allergies Seasonal Allergies: No Current Status status: No status: No Advance Directives: No Communicates: Verbally Primary Language: Macedonian Preferred Spoken Language: Macedonian Is interpretation needed?: No Implanted or Applied Medical D: None Past Medical History Surgeries: Coronary Stent, Joint Replacement, Tonsillectomy, Tubal Ligation Sleep Apnea Currently Using CPAP: Yes Currently Using BIPAP: No Heart Attack, High Cholesterol, Hypertension Arthritis, Chronic Back Pain Diabetes, Non-Insulin dep ADD/ADHD Blood Disorders: No Adverse Reaction/Blood Tranf: No Family Medical History No Pertinent Family Hx Review of Systems Constitutional: no symptoms reported EENTM: no symptoms reported Respiratory: no symptoms reported Cardiovascular: no symptoms reported Gastrointestinal: no symptoms reported Genitourinary: no symptoms reported Musculoskeletal: joint pain Skin: no symptoms reported Psychiatric/Neurological: No Symptoms Reported Physical Exam Physical Exam Vital Signs Vital Signs - First Documented Capillary Refill : Less Than 3 Seconds Height, Weight, BMI Height: 5'4" Weight: 154lbs. oz. 69.074769qh; 26.47 BMI Method:Stated General Appearance: No Apparent Distress, WD/WN HEENT: PERRL/EOMI, Pharynx Normal Neck: Normal Inspection, Supple Respiratory: Lungs Clear, Normal Breath Sounds, No Respiratory Distress Cardiovascular: Regular Rate, Rhythm, No Edema, No Murmur Gastrointestinal: Normal Bowel Sounds, Non Tender, Soft Extremity: Inflammation, Pedal Edema Neurologic/Psychiatric: Alert, No Motor/Sensory Deficits, Normal Mood/Affect Skin: Normal Color, Warm/Dry Results Results/Procedures Labs Laboratory Tests 11/21/21 05:32 Patient resulted labs reviewed. Imaging: Reviewed Imaging Report Assessment/Plan Assessment and Plan Assess & Plan/Chief Complaint Left total knee arthroplasty Left knee osteoarthritis Dr. Isaac primary s/p left TKA 11/20 Pain regimen, PACKAGE DELIVERY ROOM SERVICE RUNNER Bowel regimen PT/OT Incentive spirometer Prophylactic Lovenox HTN HLD Continue home meds Diagnosis/Problems Diagnosis/Problems (1) Osteoarthritis of left knee Status: Chronic Qualifiers: Osteoarthritis type: primary Qualified Codes: M17.12 - Unilateral primary osteoarthritis, left knee (2) S/P total knee arthroplasty Status: Acute Qualifiers: Laterality: left Qualified Codes: Z96.652 - Presence of left artificial knee joint (3) Pain following surgery or procedure Status: Acute (4) HTN (hypertension) Status: Chronic (5) HLD (hyperlipidemia) Status: Chronic ELLIOT AGRAWAL MD Nov 21, 2021 16:51
[2021-11-21] MEDS ORDERED: ESTROGEN PO SCH (21:00)
[2021-11-21] MEDS ORDERED: PROGESTERONE 100 MG PO SCH (21:00)
[2021-11-21] MEDS ORDERED: METHYLTESTOSTERONE PO SCH (21:00)
[2021-11-21] MEDS: HYDROcodone/APAP 7.5 MG/325 MG (LORTAB, LORCET PLUS) TABLET PO PRN (21:33)
--- NOTE | 2021-11-22 00:41 | DISCHARGE SUMMARY ---
DATE OF SERVICE: DIAGNOSES: 1. Left knee primary osteoarthritis. 2. Chronic kidney disease, depression, endometriosis, coronary artery disease, hypertension, gout, sleep apnea. PROCEDURE: Left total knee arthroplasty. SUMMARY: The patient is a 71-year-old female who underwent a left total knee arthroplasty on the day of admission. Postoperatively, she did well. At time of discharge, her wound was clean and dry. She has no calf tenderness. Negative Homans sign. CONDITION AT DISCHARGE: Good. DISCHARGE DIET: Regular. FOLLOWUP: Followup is in three weeks. Home physical therapy has been arranged. ACTIVITIES: Weightbearing as tolerated with a walker. DISCHARGE MEDICATIONS: Percocet as needed for pain and her home medications. Job ID: [id number] DocumentID: [id number] Dictated Date: 11/21/2021 18:33:45 Natural Gas Plant Supervisor Date: 11/22/2021 00:41:12 Dictated By: BHARATH DOAN MD
[2021-11-22] MEDS: NS IV 1000 ML 1,000 ML IV SCH (01:03)
[2021-11-22] MEDS: HYDROcodone/APAP 7.5 MG/325 MG (LORTAB, LORCET PLUS) TABLET PO PRN ×3 (01:10→10:51)
[2021-11-22 04:55] VITALS: BP 137/65
[2021-11-22] MEDS: MULTIVIT W/MINERALS TAB (THERAGRAN M) PO SCH (05:28)
[2021-11-22 05:57] LABS: HEMOGLOBIN 9.4 g/dL (11.5-16.0)
[2021-11-22] MEDS ORDERED: morphine INJ 4 MG/ML 1 ML (VIAL/SYRINGE) IVP PRN (07:00)
--- NOTE | 2021-11-22 07:01 | Progress Note ---
Standard Progress Note Progress Notes/Assess & Plan Date Seen by a Provider: Nov 22, 2021 Time Seen by a Provider: 07:00 Progress/Assessment & Plan post op check no complaints radiographs--HW well positioned without fracture LLE--2 plus DP pulse with brisk cap refill intact DF and PF of toes and ankle with intact sensation to light touch throughout s/p LTKA mobilize as able Final Diagnosis feeling better today Vital Signs Date Time Temp Pulse Resp B/P (MAP) Pulse Ox O2 Delivery O2 Flow Rate FiO2 11/22/21 05:24 16 11/22/21 04:55 37.5 74 14 137/65 (89) 96 Nasal Cannula 3.00 11/22/21 02:37 97 Nasal Cannula 3.00 11/21/21 23:30 37.1 72 16 122/64 (83) 96 Nasal Cannula 3.00 11/21/21 20:15 36.9 64 12 126/67 (86) 97 Nasal Cannula 3.00 11/21/21 19:50 94 Nasal Cannula 3.00 3.00 11/21/21 19:50 Nasal Cannula 3.00 11/21/21 18:30 94 Nasal Cannula 3.00 11/21/21 16:00 36.5 66 9 139/63 (88) 94 Nasal Cannula 3.00 11/21/21 15:00 94 Nasal Cannula 3.00 11/21/21 12:03 92 Nasal Cannula 3.00 11/21/21 12:00 37.5 62 14 107/59 (75) 95 Nasal Cannula 3.00 11/21/21 11:40 97 Nasal Cannula 3.00 11/21/21 08:30 Nasal Cannula 3.00 11/21/21 08:27 16 11/21/21 08:00 37.5 78 18 108/51 (70) 93 Nasal Cannula 1.00 11/21/21 07:31 14 I & O 11/22/21 07:00 Intake Total 3200 ml Output Total 400 ml Balance 2800 ml Laboratory Tests Test 11/22/21 05:28 Range/Units Hemoglobin 9.4 L 11.5-16.0 g/dL Hematocrit 30 L 35-52 % LLE--incision clean and dry. No calf tenderness. Neg Ellie's s/p LTKA DC home to day after PT if doing well BHARATH DOAN MD Nov 22, 2021 07:01
[2021-11-22 07:32] VITALS: BP 128/54
[2021-11-22] MEDS: ASPIRIN E.C. 81 MG (ECOTRIN) TAB PO SCH (08:20)
[2021-11-22] MEDS: SENNA W/DOCUSATE (SENOKOT S) TABLET PO SCH (08:20)
[2021-11-22] MEDS: toPIRamate 25 MG (TOPAMAX) TAB PO SCH (08:20)
[2021-11-22] MEDS: ENOXAPARIN 30 MG/0.3 ML (LOVENOX) SYR SC SCH (08:20)
[2021-11-22] MEDS: ESTRADIOL 1 MG TAB (ESTRACE) PO SCH ×2 (08:21→08:49)
--- NOTE | 2021-11-22 09:23 | Physical Therapy Daily Note ---
PT Daily Note-Current Subjective Patient agrees to PT. More alert. Pain Numeric Pain Scale: 8 Location: Left Location Body Site: Knee Pain Description: Acute Mental Status Patient Orientation: Normal For Age Transfers SCALE: Activities may be completed with or without assistive devices. 5-Kdksvgfqrw-voedmsr completes the activity by him/herself with no assistance from a helper. 5-Set-up or Clean-up Assistance-helper sets up or cleans up; patient completes activity. [place] assists only prior to or following the activity. 4-Supervision or Touching Assistance-helper provides verbal cues and/or touching/steadying and/or contact guard assistance as patient completes activity. Assistance may be provided throughout the activity or intermittently. 3-Partial/Moderate Assistance-helper does LESS THAN HALF the effort. [place] lifts, holds or supports trunk or limbs, but provides less than half the effort. 2-Substantial/Maximal Assistance-helper does MORE THAN HALF the effort. [place] lifts or holds trunk or limbs and provides more than half the effort. 9-Eicwsphnp-qznsha does ALL the effort. Patient does none of the effort to complete the activity. Or, the assistance of 2 or more helpers is required for the patient to complete the activity. If activity was not attempted, code reason: 7-Patient Refused. 9-Not Applicable-not attempted and the patient did not perform the activity before the current illness, exacerbation or injury. 10-Not Attempted due to Environmental Limitations-(lack of equipment, weather restraints, etc.). 88-Not Attempted due to Medical Conditions or Safety Concerns. Lying to Sitting/Side of Bed(Q: 6 Sit to Stand (QC): 4 Chair/Dkt-vj-Qhnzv Xfer(QC): 4 Toilet Transfer (QC): 4 Weight Bearing Left Lower Extremity: Left Weight Bearing/Tolerated Gait Training Does the Patient Walk?: Yes Distance: 150' x 2 Walk 10 feet (QC): 4 Walk 50 ft with 2 Turns(QC): 4 Walk 150 ft (QC): 4 Gait Assistive Device: FWW very slow, antalgic gait sequence Stair Training Stair Training: Handrails/: 1 handrail, uses walker #of Steps: 4 1 Step (curb) (QC): 4 4 Steps (QC): 4 Stairs: Pattern: Step to Exercises Supine Ex: Ankle pumps, Quad Set, Heel Slides, Straight leg raise Supine Reps: 15 Seated Therapy Exercises: Long arc quads Seated Reps: 15 Assessment Patient tolerated treatment well and will dismiss to home on this date. Patient instructed to perform HEP issued by physician in preop. Patient voices understanding. PT Assisted Goals Assisted Goals PT Tilt Wall Supervisor Goals Time Frame: Dec 06, 2021 Roll Left & Right (QC): 6 Sit to Lying (QC): 6 Lying-Sitting on Side/Bed(QC): 6 Sit to Stand (QC): 6 Chair/Rqo-rl-Pjirk Xfer(QC): 6 Toilet Transfer (QC): 6 Does the Patient Walk: Yes Walk 10 feet (QC): 6 Walk 50ft with 2 Turns (QC): 6 Walk 150 ft (QC): 6 1 Step (curb) (QC): 4 4 Steps (QC): 4 12 Steps (QC): 4 PT Plan Treatment/Plan Treatment Plan: Discontinue PT Treatment Plan: Bed Mobility, Education, Functional Activity Windy, Functional Strength, Group Therapy, Gait, Safety, Therapeutic Exercise, Transfers Treatment Duration: Dec 20, 2021 Frequency: 11 times per week Estimated Hrs Per Day: .25 hour per day Time/GCodes Time In: 720 Time Out: 754 Total Billed Treatment Time: 34 Total Billed Treatment 1 visit EX 18 min GT 16 min SWATI DUDLEY PT Nov 22, 2021 09:23
[2021-11-22 11:02] VITALS: BP 116/59
--- NOTE | 2021-11-22 11:33 | Physical Therapy Daily Note ---
PT Daily Note-Current Subjective Patient reports she just had an "episode" of convulsing. Reluctantly agrees to PT. Pain Numeric Pain Scale: 10-Worst Possible Pain Location: Left Location Body Site: Knee Pain Description: Acute Mental Status Attachments: Oxygen Transfers SCALE: Activities may be completed with or without assistive devices. 0-Nrlqhaitaj-jftldtp completes the activity by him/herself with no assistance from a helper. 5-Set-up or Clean-up Assistance-helper sets up or cleans up; patient completes activity. [place] assists only prior to or following the activity. 4-Supervision or Touching Assistance-helper provides verbal cues and/or touching/steadying and/or contact guard assistance as patient completes activity. Assistance may be provided throughout the activity or intermittently. 3-Partial/Moderate Assistance-helper does LESS THAN HALF the effort. [place] lifts, holds or supports trunk or limbs, but provides less than half the effort. 2-Substantial/Maximal Assistance-helper does MORE THAN HALF the effort. [place] lifts or holds trunk or limbs and provides more than half the effort. 6-Ynxuqdjqv-ludcly does ALL the effort. Patient does none of the effort to complete the activity. Or, the assistance of 2 or more helpers is required for the patient to complete the activity. If activity was not attempted, code reason: 7-Patient Refused. 9-Not Applicable-not attempted and the patient did not perform the activity before the current illness, exacerbation or injury. 10-Not Attempted due to Environmental Limitations-(lack of equipment, weather restraints, etc.). 88-Not Attempted due to Medical Conditions or Safety Concerns. Lying to Sitting/Side of Bed(Q: 4 Sit to Stand (QC): 4 Chair/Pam-co-Erylv Xfer(QC): 4 SBA for safety due to patient is very tearful Weight Bearing Left Lower Extremity: Left Weight Bearing/Tolerated Gait Training Distance: 10' Walk 10 feet (QC): 4 Gait Assistive Device: FWW antalgic Exercises Supine Ex: Ankle pumps, Quad Set Supine Reps: 12 Seated Therapy Exercises: Ankle pumps, Long arc quads Seated Reps: 12 Treatments Patient has AROM left knee 10 degrees TKE and 78 degrees flexion Assessment Patient appears very frustrated and voices that her knee shouldn't hurt this much. PT reassured patient that she had a major surgery and it is going to hurt and to continue to take her pain medication as prescribed by physician. Patient voices understanding. Patient's mobility is functional with FWW use. Patient remains on 2L O2 NC due to decreased SAO2 at rest per RN. PT to increase activity as tolerated by patient. Patient did perform stair training this a.m. and is functional with this. Spouse present during stair training to assist at home. PT Meat Blender Goals Long-Term Goals PT Meat Blender Goals Time Frame: Dec 06, 2021 Roll Left & Right (QC): 6 Sit to Lying (QC): 6 Lying-Sitting on Side/Bed(QC): 6 Sit to Stand (QC): 6 Chair/Npj-dz-Qblnn Xfer(QC): 6 Toilet Transfer (QC): 6 Does the Patient Walk: Yes Walk 10 feet (QC): 6 Walk 50ft with 2 Turns (QC): 6 Walk 150 ft (QC): 6 1 Step (curb) (QC): 4 4 Steps (QC): 4 12 Steps (QC): 4 PT Plan Treatment/Plan Treatment Plan: Continue Plan of Care Treatment Plan: Bed Mobility, Education, Functional Activity Windy, Functional Strength, Group Therapy, Gait, Safety, Therapeutic Exercise, Transfers Treatment Duration: Dec 20, 2021 Frequency: 11 times per week Estimated Hrs Per Day: .25 hour per day Time/GCodes Time In: 1106 Time Out: 1123 Total Billed Treatment Time: 17 Total Billed Treatment 1 visit EX 17 min SWATI DUDLEY PT Nov 22, 2021 11:33
--- NOTE | 2021-11-22 13:17 | Occupational Ther Daily Note ---
OT Current Status-Daily Note Subjective Pt alert, sitting in recliner. Pt agrees to therapy. Family present in room. Pt to discharge to home today. Mental Status/Objective Patient Orientation: Person, Place, Time, Situation Attachments: IV ADL-Treatment Educated pt on AE for lower body dressing. Pt was not interested in using equipment. LIRA did describe in detail how to use sock aide and technique to don KELLIE hose. Pt and family verbalized understanding. Discussed pt bathroom set up. Pt has walk-in shower with built-in seat, no grabbars. Discussed how to use FWW to get into/out of shower without grabbars, pt/family verbalized understanding. After session, pt sitting in recliner with call light/phone in reach. Nrsg tech in room. All needs met. Therapy Code Descriptions/Definitions Functional [place] Measure: 0=Not Assessed/NA 4=Minimal Assistance 1=Total Assistance 5=Supervision or Setup 2=Maximal Assistance 6=Modified [place] 3=Moderate Assistance 7=Complete IndependenceSCALE: Activities may be completed with or without assistive devices. 0-Aqtpgmkvut-nhelqbv completes the activity by him/herself with no assistance from a helper. 5-Set-up or Clean-up Assistance-helper sets up or cleans up; patient completes activity. [place] assists only prior to or following the activity. 4-Supervision or Touching Assistance-helper provides verbal cues and/or touching/steadying and/or contact guard assistance as patient completes activity. Assistance may be provided throughout the activity or intermittently. 3-Partial/Moderate Assistance-helper does LESS THAN HALF the effort. [place] lifts, holds or supports trunk or limbs, but provides less than half the effort. 2-Substantial/Maximal Assistance-helper does MORE THAN HALF the effort. [place] lifts or holds trunk or limbs and provides more than half the effort. 6-Gpmthjczy-jiboyi does ALL the effort. Patient does none of the effort to complete the activity. Or, the assistance of 2 or more helpers is required for the patient to complete the activity. If activity was not attempted, code reason: 7-Patient Refused. 9-Not Applicable-not attempted and the patient did not perform the activity before the current illness, exacerbation or injury. 10-Not Attempted due to Environmental Limitations-(lack of equipment, weather restraints, etc.). 88-Not Attempted due to Medical Conditions or Safety Concerns. Education OT Patient Education: Modified ADL techniques, Use of adapted equipment Teaching Recipient: Patient, Family Teaching Methods: Demonstration, Discussion Response to Teaching: Verbalize Understanding OT Alf Goals Supervisor Type Bar And Segment Goals Time Frame: Nov 29, 2021 Eating (QC): 6 Oral Hygiene (QC): 6 Toileting Hygiene (QC): 6 Shower/Bathe Self (QC): 4 Upper Body Dressing (QC): 6 Lower Body Dressing (QC): 4 On/Off Footwear (QC): 4 Additional Goals: 1-Demonstrate ADL Tasks, 2-Verbalize Understanding, 3-ImproveStrength/[place] 1=Demonstrate adherence to instructed precautions during ADL tasks. 2=Patient will verbalize/demonstrate understanding of assistive devices/modifications for ADL. 3=Patient will improve strength/tolerance for activity to enable patient to perf orm ADL's. OT Education/Plan Discharge Recommendations Plan/Recommendations: Discharge/Goals Met (discharge to home today) Treatment Plan/Plan of Care Patient would benefit from OT for education, treatment and training to promote independence in ADL's, mobility, safety and/or upper extremity function for ADL's. Plan of Care: ADL Retraining, Functional Mobility, UE Funct Exercise/Act Treatment Duration: Nov 29, 2021 Frequency: 3 times per week (3-5 times per week) Estimated Hrs Per Day: .25 hour per day Rehab Potential: Good Time/GCodes Start Time: 13:00 Stop Time: 13:11 Total Time Billed (hr/min): 11 Billed Treatment Time 1 visit-FA 1 (11 min) PORSCHE ESQUIVEL Nov 22, 2021 13:17
== END 2021-11-22 15:51 | disposition home health service (06) | DRG 470 ==
LOC: 4TH 06:00 → SURG 06:01 → 4TH 10:07
PROVIDERS: ADMIT Orthopaedic Surgery; ATTEND Orthopaedic Surgery
PROC: 5A09357 Assistance with Respiratory Ventilation, Less than 24 Consecutive Hours, Continuous Positive Airway Pressure (ICD-10-PCS; 2021-11-20)
PROC: 0SRD0J9 Replacement of Left Knee Joint with Synthetic Substitute, Cemented, Open Approach (ICD-10-PCS; principal; 2021-11-20 07:35)
DX: M17.12 Unilateral primary osteoarthritis, left knee (principal); I12.9 Hypertensive chronic kidney disease with stage 1 through stage 4 chronic kidney disease, or unspecified chronic kidney disease; N18.2 Chronic kidney disease, stage 2 (mild); M10.9 Gout, unspecified; G47.33 Obstructive sleep apnea (adult) (pediatric); E11.9 Type 2 diabetes mellitus without complications; E78.00 Pure hypercholesterolemia, unspecified; F90.9 Attention-deficit hyperactivity disorder, unspecified type; E78.5 Hyperlipidemia, unspecified; F32.A Depression, unspecified; Z87.891 Personal history of nicotine dependence; Z95.5 Presence of coronary angioplasty implant and graft; Z79.899 Other long term (current) drug therapy; Z79.82 Long term (current) use of aspirin; Z79.890 Hormone replacement therapy; Z99.89 Dependence on other enabling machines and devices; Z96.651 Presence of right artificial knee joint
CPT/HCPCS: 36415; 73560; 85014; 85018; 85610; 86850; 86900; 86901; 94760; 94761

== ENCOUNTER → 2021-12-23 | Outpatient (RCR) | payer MEDICARE, OTHER | END | disposition home or self-care (01) | PROVIDERS: ATTEND Orthopaedic Surgery | DX: Z47.1 Aftercare following joint replacement surgery (principal); Z96.652 Presence of left artificial knee joint ==

== ENCOUNTER 2022-01-16 12:58 | Outpatient (RCR) | payer OTHER | END 2022-01-20 | disposition home or self-care (01) | PROVIDERS: ATTEND Orthopaedic Surgery | DX: Z47.1 Aftercare following joint replacement surgery (principal); E11.9 Type 2 diabetes mellitus without complications; Z96.652 Presence of left artificial knee joint ==

== ENCOUNTER → 2022-02-04 | Outpatient (CLI) | payer OTHER ==
--- NOTE | 2022-02-04 20:48 | Diagnostic Imaging Report ---
INDICATION: Painful swollen area in the right neck. FINDINGS: Thyroid is unremarkable. There are tiny 3 mm hypoechogenic foci in its upper pole which may be cystic. No suspicious thyroidal mass and the thyroid volume is normal. Right lobe 4 cm, left lobe 4.1 cm. With regard to the region of clinical complaint, no solid or cystic sonographic abnormality is apparent. No demonstrated adenopathy. No fluid collection. IMPRESSION: Unremarkable thyroid normal in size. No sonographic explanation for the presenting palpable complaint. This is typically associated with lipomatous change which can be sonographically imperceptible, however, if there is persistent unexplained clinically palpable lesion in the patient's neck requiring further workup, we would recommend contrast-enhanced soft tissue neck CT versus MRI as nonemergent follow-up. Dictated by: Dictated on workstation # [id number]
== END ==
LOC: RAD 10:45
PROVIDERS: ATTEND Nurse Practitioner Family
DX: R22.1 Localized swelling, mass and lump, neck (principal)
CPT/HCPCS: 76536

== ENCOUNTER 2022-02-17 13:05 | Outpatient (RCR) | payer OTHER | END 2022-02-20 | disposition home or self-care (01) | PROVIDERS: ATTEND Orthopaedic Surgery | DX: M17.12 Unilateral primary osteoarthritis, left knee (principal); E11.9 Type 2 diabetes mellitus without complications; Z96.652 Presence of left artificial knee joint ==

== ENCOUNTER 2022-03-17 10:59 | Outpatient (RCR) | payer OTHER | END 2022-03-22 | disposition home or self-care (01) | PROVIDERS: ATTEND Orthopaedic Surgery | DX: Z47.1 Aftercare following joint replacement surgery (principal); M17.12 Unilateral primary osteoarthritis, left knee; E11.9 Type 2 diabetes mellitus without complications; Z96.652 Presence of left artificial knee joint ==

== ENCOUNTER → 2022-07-17 | Outpatient (CLI) | payer OTHER ==
[~2022-07-17] MED LIST changes: +CATHETER FLUSH 10 ML SYR IV PRN; +HOLD METFORMIN - RECEIVED CONTRAST 20 ML VIAL IV SCH; +IOHEXOL 350 MG/ML 100 ML (OMNIPAQUE 350) VIAL IV ONE; +NS 100 ML (IVPB) BAG IV ONE
[2022-07-17 11:10] LABS: CREATININE SERUM 1.1 MG/DL (0.60-1.30)
--- NOTE | 2022-07-17 14:38 | Diagnostic Imaging Report ---
PROCEDURE: CT neck soft tissue with contrast. TECHNIQUE: Multiple contiguous axial images were obtained through the neck after the administration of contrast. Auto Exposure Controls were utilized during the CT exam to meet ALARA standards for radiation dose reduction. INDICATION: Pain during swallowing. No prior studies are available for comparison. FINDINGS: A BB marker is placed at the area of pain in the right neck. This corresponds to the level of the submandibular glands. No underlying abnormality is seen. Submandibular and parotid glands are unremarkable. Posterior nasopharynx and oropharynx are unremarkable. Parapharyngeal fat planes are preserved. Epiglottis and larynx are unremarkable. No thyroid masses are seen. The carotid and masticators spaces are unremarkable. No cervical lymphadenopathy is seen. There are no fluid collections. IMPRESSION: Unremarkable CT soft tissue neck study. No underlying mass is detected. Dictated by: Dictated on workstation # [id number]
== END ==
LOC: RAD 10:32
PROVIDERS: ATTEND Otolaryngology Otolaryngology/Facial Plastic Surgery
DX: R22.1 Localized swelling, mass and lump, neck (principal)
CPT/HCPCS: 36415; 70491; 82565; 84520

== ENCOUNTER → 2022-11-07 | Outpatient (CLI) | payer OTHER ==
[~2022-11-07] MED LIST changes: -CATHETER FLUSH 10 ML SYR IV PRN; -HOLD METFORMIN - RECEIVED CONTRAST 20 ML VIAL IV SCH; -IOHEXOL 350 MG/ML 100 ML (OMNIPAQUE 350) VIAL IV ONE; -NS 100 ML (IVPB) BAG IV ONE
--- NOTE | 2022-11-07 12:04 | Diagnostic Imaging Report ---
INDICATION: Routine screening. Comparison is made with prior mammogram of 09/30/2021 and 08/30/2014. 2-D and 3-D bilateral screening mammography was performed with CAD. Both breasts are heterogeneously dense, limiting the sensitivity of mammography. The parenchymal pattern is stable. No mass or malignant-appearing microcalcifications are seen. Axillae are unremarkable. IMPRESSION: No mammographic features suspicious for malignancy are identified. ACR BI-RADS Category 1: Negative. Result letter will be mailed to the patient. Note: At least 10% of breast cancer is not imaged by mammography. BI-RADS Category 1 Dictated by: Dictated on workstation # [id number]
== END ==
LOC: RAD 10:45
PROVIDERS: ATTEND Nurse Practitioner Family
DX: Z12.31 Encounter for screening mammogram for malignant neoplasm of breast (principal)
CPT/HCPCS: 77063; 77067